=== PATIENT | female | born 1975 | race Caucasian/White ===

== ENCOUNTER 2017-06-30 22:50 | Emergency (ER) | payer MEDICAID ==
[~2017-06-30] VITALS: Ht 149.9 cm; Wt 51.8 kg
[2017-07-01 01:11] VITALS: BP 130/93
== END 2017-07-01 01:11 | disposition home or self-care (01) ==
LOC: ER 22:51
DX: Z00.00 Encounter for general adult medical examination without abnormal findings (principal); G89.29 Other chronic pain; M54.9 Dorsalgia, unspecified; G43.909 Migraine, unspecified, not intractable, without status migrainosus; Z88.6 Allergy status to analgesic agent; Z98.890 Other specified postprocedural states
CPT/HCPCS: 99283